=== PATIENT | male | born 1965 | race Caucasian/White ===

== ENCOUNTER 2018-12-05 13:37 | Emergency (ER) | payer OTHER ==
[~2018-12-05] VITALS: Ht 180.3 cm; Wt 108.9 kg
[2018-12-05] MEDS ORDERED: methylPREDNISolone SOD SUCC 125 MG/2 ML VL IV ONE (15:30)
[2018-12-05 17:26] VITALS: BP 113/67
== END 2018-12-05 17:45 | disposition home or self-care (01) ==
LOC: ER 14:02
DX: G89.29 Other chronic pain (principal); M54.5 Low back pain; M54.6 Pain in thoracic spine; E78.5 Hyperlipidemia, unspecified; I10 Essential (primary) hypertension
CPT/HCPCS: 96374; 99283; J2930